=== PATIENT | male | born 1970 | race Caucasian/White ===

== ENCOUNTER 2023-07-10 07:30 | Day surgery (SDC) | payer OTHER, SELFPAY ==
[2023-07-10 07:54] VITALS: BP 139/95; PULSE 91; RESP 16; TEMP 36.1; O2SAT 99; BMI 26.1
[2023-07-10] MEDS: Lactated Ringers 1,000 ML 15 ML IV (07:57)
--- NOTE | 2023-07-10 08:48 | HP.PCM_ITS ---
HPI - General HPI Narrative JE TAVERA, is a 52 M who presents for screening colonoscopy. He has never had a colonoscopy in the past. He reports no abdominal pain or blood in the stool. He does have a family history of colon cancer in his mother but she was over age 70 when diagnosed. [facility] Medical History (Updated 07/05/23 @ 09:38 by Angel Sanchez) CAD (coronary artery disease) Cardiology follow-up encounter Family hx of colon cancer Heart disease, hypertensive History of heart attack Mixed hyperlipidemia Smoker Wears dentures Wears glasses Home Medications [id number]-[id number]-[id number] tablet (Multivitamin 50 Plus tablet) 1 tab PO DAILY 07/05/23 [History Last Taken Unknown] Allergy/AdvReac Type Severity Reaction Status Date / Time No Known Allergies Allergy Verified 07/10/23 07:54 Family History (Updated 05/08/23 @ 08:57 by Yamilet Leal) Mother Colon cancer, Onset Age: 70 Father Heart disease Surgical History (Updated 07/05/23 @ 09:38 by Angel Sanchez) History of cardiac catheterization History of heart artery stent S/P CABG x 1 Social History (Updated 05/08/23 @ 08:59 by Yamilet Leal) household members: spouse Smoking Status: Current every day smoker tobacco type: cigarettes alcohol intake: current details: Every day drinker substance use type: does not use Past Medical/Surgical History Planned Operation Planned Operative Procedure/s: COLONOSCOPY Previous Hospitalizations/Surgeries HX Hospitalizations: No HX of Surgeries: CARDIAC BYPASS AND STENTING WHEN PT WAS IN HIS LATE 30'S Any Problems With Anesthesia: No You/Your Family Experience Fever (Hyperthermia) With Anes: No Cholinesterase deficiency: No Cardiovascular Hx Chest Pain within Last 2 months: Yes Hx of Irregular Heartbeat and/or Afib: No Hx Heart Attack: No Hx Congestive Heart Failure: No Hx Rheumatic Fever: No Hx Hypertension: No Hx Internal Defibrillator: No Hx Pacemaker: No Hx Cardiac Catheterization: Yes What facility was last heart cath performed: [facility] Date of last Heart Cath: [facility] Hx Cardiac Surgery/Stents/Etc.: Yes Hx Stress Test: Yes Hx Pain in Legs when Walking/Leg Cramps: No Respiratory Chronic Cough: Yes HX of Shortness of Breath: Yes Hoarseness: No Hx Chronic Obstructive Pulmonary Disease (COPD): No Hx Asthma: No Hx Emphysema: No Hx Sleep Apnea: No CPAP: No BIPAP: No Hx Respiratory Tract Infection/Cold (presently): Yes (SINUS DRAINAGE) Do You Snore Loudly (louder than talking or can be heard): No Do You Often Feel Tired/ Fatigued/ Sleepy Dring Daytime?: No Has Anyone Observed You Stop Breathing During Sleep?: No Result (for STOP score): Negative Hx Smoking: Yes Smoking Status: Current every day smoker Gastrointestinal Controlled With Meds: No Hx Gastrointestinal Disorders: No Hx Ulcer: No Special diet followed at home: No Hx Unplanned Weight Loss of 20#: No HX Unplanned Weight Gain of 20#: No Neurological Hx Seizures: No HX Syncope/Blackout Spells/Unconsciousness: No Hx Transient Ischemic Attacks (TIA): No Hx Multiple Sclerosis: No Hx Parkinson's Disease: No Hx Head/Neck Injury: No Hx Headaches: No Hx Back Injury/Pain: Yes Does patient have nerve stimulator: No Blood Disorder Hx Deep Vein Thrombosis: No Hx High Cholesterol: Yes Hx Hepatitis: No Hx Anemia: No Hx Blood Disorders: No Reproduction Is Patient Lactating: No Genitourinary Hx Renal Disease: No Hx Dialysis: No Musculoskeletal Hx Arthritis: No Hx Gout: No Endocrine Hx Diabetes: No Insulin: No Thyroid Disease: No Hx Steroid Therapy: No Psycho/Social Hx Alcohol Use: Yes (EVERY DAY ALCOHOL USE) Hx Anxiety: No Hx Depression: No Mental Illness: No Hx Dementia: No Miscellaneous Hx Cancer: No Recent Exposure to Contagious Disease: No Allergies No Known Allergies Allergy (Verified 07/10/23 07:54) Discharge After D/C, Where Do you Plan to Go: Return Home Vital Signs Vital Signs Vital Signs: 07/10/23 07:54 07/10/23 07:54 Temperature 97.0 F L Temperature Source Temporal Pulse Rate 91 Respiratory Rate 16 Respiratory Pattern Normal Blood Pressure 139/95 H Blood Pressure Mean 109 Blood Pressure Source Monitor Blood Pressure Position Semi-Fowlers Blood Pressure Location Left Arm Pulse Ox 99 Oxygen Delivery Method Room Air Weight Weight: 181 lb 14.102 oz Body Mass Index (BMI) 26.1 Physical Exam Const alert and oriented x3 HEENT normocephalic Eyes PERRL Resp normal respiratory effort and normal air movement Cardio regular rate and regular rhythm GI soft to palpation, non-tender and non-distended Extremity normal to inspection Assessment & Plan Assessment/Plan (1) Encounter for screening for malignant neoplasm of colon: PLAN: I explained endoscopy in detail to the patient. I explained the risks including but not limited to stroke or heart attack with anesthesia, perforation of the GI tract, bleeding, infection. I explained that any of these could necessitate further emergency surgery. The patient understands and all questions were answered sufficiently. The patient wishes to proceed with procedure. Travis Dennis MD Pager: [facility] [address] [place] [address] [address] [place] [address] Office: Surgery Risks - Colonoscopy Risks Include but are not Limited To: Risks include but are not limited to: Bleeding, perforation requiring further surgery, inability to complete colonoscopy requiring barium enema.
[2023-07-10 09:12] VITALS: BP 104/79; BP 139/95; PULSE 77; RESP 14; TEMP 36.4; O2SAT 97
[2023-07-10 09:15] VITALS: BP 111/88; BP 139/95; PULSE 74; RESP 14; O2SAT 97
--- NOTE | 2023-07-10 09:16 | OP.COLON_ITS ---
Patient Name: Trae Jha Procedure Date: 07/10/2023 8:47 AM Date of : 1970 Age: 52 Procedure: Colonoscopy Indications: Screening in patient at increased risk: Colorectal cancer in mother 60 or older Providers: Travis Dennis MD Medicines: Propofol per Anesthesia Patient Profile: This is a 52 year old male. Refer to note in patient chart for documentation of history and physical. Last Colonoscopy: none. The patient's first colonoscopy is today. Complications: No immediate complications. Procedure: Pre-Anesthesia Assessment: - Prior to the procedure, a History and Physical was performed, and patient medications and allergies were reviewed. The patient's tolerance of previous anesthesia was also reviewed. The risks and benefits of the procedure and the sedation options and risks were discussed with the patient. All questions were answered, and informed consent was obtained. Prior Anticoagulants: The patient has taken no anticoagulant or antiplatelet agents. After reviewing the risks and benefits, the patient was deemed in satisfactory condition to undergo the procedure. After I obtained informed consent, the scope was passed under direct vision. Throughout the procedure, the patient's blood pressure, pulse, and oxygen saturations were monitored continuously. The pediatric colonoscope was introduced through the anus and advanced to the cecum, identified by appendiceal orifice and ileocecal valve. The colonoscopy was performed without difficulty. The patient tolerated the procedure well. The quality of the bowel preparation was adequate. The ileocecal valve, appendiceal orifice, and rectum were photographed. Scope In: 8:52:38 AM Scope Withdrawal Time 0 hours 6 minutes 12 seconds Scope Out: 9:07:37 AM Total Procedure Duration Time 0 hours 14 minutes 59 seconds Findings: The entire examined colon appeared normal on direct and retroflexion views. Impression: - The entire examined colon is normal on direct and retroflexion views. - No specimens collected. Recommendation: - Discharge patient to home. - Resume previous diet. - Continue present medications. - Repeat colonoscopy in 10 years for screening purposes. Procedure Code(s): --- Professional --- 51035, Colonoscopy, flexible; diagnostic, including collection of specimen(s) by brushing or washing, when performed (separate procedure) Diagnosis Code(s): --- Professional --- Z80.0, Family history of malignant neoplasm of digestive organs CPT copyright 2022 [employer]. All rights reserved. The codes documented in this report are preliminary and upon tool or die drawing checker review may be revised to meet current compliance requirements. Travis Dennis MD 07/10/2023 9:16:06 AM This report has been signed electronically. Number of Addenda: 0 Note Initiated On: 07/10/2023 8:47 AM
--- NOTE | 2023-07-10 09:16 | OP.CCLET_ITS ---
07/10/2023 Beckie Prabhakar [address] [place] [address] Re : Colonoscopy procedure for Trae Jha Dear Dr. Prabhakar This procedure was performed on Monday, July 10, 2023. My impressions and recommendations are as follows: Impressions : - The entire examined colon is normal on direct and retroflexion views. - No specimens collected. Recommendations : - Discharge patient to home. - Resume previous diet. - Continue present medications. - Repeat colonoscopy in 10 years for screening purposes. My findings are described in the full procedure note, which is enclosed. If I can be of further assistance, please feel free to contact me at Doctor phone number(s): , Work: . Sincerely, Travis Dennis MD 07/10/2023 9:16:06 AM This report has been signed electronically.
[2023-07-10 09:19] VITALS: BP 120/94; BP 139/95; PULSE 79; RESP 18; O2SAT 98
[2023-07-10 09:25] VITALS: BP 135/92; BP 139/95; PULSE 72; RESP 18; TEMP 36.7; O2SAT 99
[2023-07-10 09:39] VITALS: BP 139/95
== END 2023-07-10 09:42 | disposition home or self-care (01) ==
LOC: EN 07:33 → AC 07:52
PROVIDERS: PCP Internal Medicine; Referring Provider Internal Medicine; Visit Provider Surgery
PROC: 0DJD8ZZ Inspection of Lower Intestinal Tract, Via Natural or Artificial Opening Endoscopic (ICD-10-PCS; CPT 45378; principal; 2023-07-10 08:25)
DX: Z12.11 Encounter for screening for malignant neoplasm of colon (principal); I25.10 Atherosclerotic heart disease of native coronary artery without angina pectoris; E78.2 Mixed hyperlipidemia; F17.210 Nicotine dependence, cigarettes, uncomplicated; I11.9 Hypertensive heart disease without heart failure; Z80.0 Family history of malignant neoplasm of digestive organs; Z95.1 Presence of aortocoronary bypass graft
CPT/HCPCS: 45378; J7120; J2405